=== PATIENT | female | born 1965 | race Hispanic/Latino ===

== ENCOUNTER 2022-11-27 13:49 | Emergency (ER) | payer MEDICAID, OTHER ==
[~2022-11-27] VITALS: Ht 152.4 cm; Wt 111.4 kg
[2022-11-27] MEDS ORDERED: ATOR40TA75 PO (14:20)
[2022-11-27] MEDS ORDERED: FLUT1BLS IH (14:20)
[2022-11-27] MEDS ORDERED: METF-838 PO (14:20)
[2022-11-27] MEDS ORDERED: ANAS1TAB2 PO (14:20)
[2022-11-27 15:38] LABS: BASO # 0.1 10^3/uL (0.0-0.2); BASO % 1.1 % (0.0-1.0); EOS # 0.2 10^3/uL (0.0-0.5); EOS % 2.4 % (0.0-3.0); HEMATOCRIT 43.6 % (36.0-47.0); HEMOGLOBIN 13.5 g/dl (12.0-15.5); LYMPH # 3.3 10^3/uL (1.5-5.0); LYMPH % 36.8 % (24.0-44.0); MEAN CORPUSCULAR HEMOGLOBIN 25.8 pg (27.0-33.0); MEAN CORPUSCULAR VOLUME 83.4 fl (80.0-96.0); MONO # 0.3 10^3/uL (0.0-0.8); MONO % 3.8 % (2.0-8.0); NEUTROPHILS # 4.9 10^3/uL (1.5-8.5); NEUTROPHILS % 55.7 % (36.0-66.0); PLATELET COUNT, AUTOMATED 261 10^3/uL (150-450); RED BLOOD COUNT 5.23 10^6/uL (4.00-5.40); WHITE BLOOD COUNT 8.9 10^3/uL (4.0-10.0)
[2022-11-27 15:55] LABS: CK-MB VALUE MASS < 1.0 NG/ML (<3.6); LIPASE 41 U/L (12-53)
[2022-11-27 15:57] LABS: CPK CREATINE PHOSPHOKINASE 88 U/L (34-145); MB/CK RELATIVE INDEX 1.13 (< OR =4)
[2022-11-27 15:59] LABS: ALBUMIN 3.4 G/DL (3.2-5.2); ALKALINE PHOSPHATASE 111 U/L (46-116); ALT/SGPT 45 U/L (7.0-40); AST/SGOT 29 U/L (<34); BILIRUBIN,DIRECT 0.1 MG/DL (<0.4); BILIRUBIN,TOTAL 0.5 MG/DL (0.3-1.2); BLOOD UREA NITROGEN 16 MG/DL (9-23); CALCIUM LEVEL 8.8 MG/DL (8.5-10.1); CARBON DIOXIDE LEVEL 28 MMOL/L (20-31); CHLORIDE LEVEL 99 MMOL/L (98-107); CREATININE FOR GFR 0.74 MG/DL (0.55-1.30); GLOMERULAR FILTRATION RATE > 60.0 (>51); GLUCOSE, FASTING 499 MG/DL (60-100); POTASSIUM SERUM 4.2 MMOL/L (3.5-5.1); SODIUM LEVEL 135 MMOL/L (136-145); TOTAL PROTEIN 7.5 G/DL (5.7-8.2)
[2022-11-27] MEDS ORDERED: INSULIN LISPRO (NovoLOG) PER UNIT SC STA (17:32)
[2022-11-27] MEDS ORDERED: NS 1,000 ML IV ONE ×2 (17:35→19:45)
[2022-11-27 18:27] LABS: CK-MB VALUE MASS < 1.0 NG/ML (<3.6)
[2022-11-27 18:29] LABS: CPK CREATINE PHOSPHOKINASE 82 U/L (34-145); MB/CK RELATIVE INDEX 1.21 (< OR =4)
[2022-11-27] MEDS ORDERED: ISOVUE-370 76% 100ML VIAL As Ordered ONE (18:36)
[2022-11-27 20:27] LABS: RSV AMPLIFICATION NEGATIVE (NEGATIVE)
[2022-11-27 21:02] VITALS: BP 180/90; TEMP 97.6; O2SAT 95
[2022-11-27] MEDS ORDERED: IBUP-1022 PO ×2 (22:06→22:09)
== END 2022-11-27 22:26 | disposition home or self-care (01) ==
LOC: M ED 13:49
DX: R07.89 Other chest pain (principal); E11.65 Type 2 diabetes mellitus with hyperglycemia; S93.402A Sprain of unspecified ligament of left ankle, initial encounter; X58.XXXA Exposure to other specified factors, initial encounter; Y92.89 Other specified places as the place of occurrence of the external cause; E78.5 Hyperlipidemia, unspecified; Z85.3 Personal history of malignant neoplasm of breast; Z90.12 Acquired absence of left breast and nipple
CPT/HCPCS: 71045; 71275; 73610; 73630; 80048; 80076; 82550; 82553; 83690; 84484; 85025; 85379; 87631; 93005; 93971; 96360; 96361; 99284; J1815; Q9967